=== PATIENT | male | born 1965 | race Caucasian/White ===

== ENCOUNTER → 2017-02-20 | Outpatient (CLI) | payer OTHER ==
[2016-08-19 14:33] VITALS: BP 158/90
[~2017-02-20] MED LIST: DIAZ5TAB PO; HYDR-971 PO; METF1000 PO; NAPR500T PO; PIOG30TA20 PO
== END | disposition home or self-care (01) ==
LOC: LAB 13:32
PROVIDERS: ATTEND Psychiatry & Neurology Neurology
DX: G72.9 Myopathy, unspecified (principal)
CPT/HCPCS: 36415; 82550; 85651

== ENCOUNTER → 2018-06-11 | Outpatient (CLI) | payer OTHER | END | disposition home or self-care (01) | LOC: KCIC MRI 09:00 | DX: M47.896 Other spondylosis, lumbar region (principal); M47.892 Other spondylosis, cervical region; M48.061 Spinal stenosis, lumbar region without neurogenic claudication; M12.88 Other specific arthropathies, not elsewhere classified, other specified site; M51.26 Other intervertebral disc displacement, lumbar region; M51.16 Intervertebral disc disorders with radiculopathy, lumbar region; M25.78 Osteophyte, vertebrae; I10 Essential (primary) hypertension; E11.628 Type 2 diabetes mellitus with other skin complications; K21.9 Gastro-esophageal reflux disease without esophagitis; G43.909 Migraine, unspecified, not intractable, without status migrainosus; J44.9 Chronic obstructive pulmonary disease, unspecified; Z90.49 Acquired absence of other specified parts of digestive tract; Z90.89 Acquired absence of other organs; Z80.3 Family history of malignant neoplasm of breast; Z83.3 Family history of diabetes mellitus; Z68.37 Body mass index [BMI] 37.0-37.9, adult; Z80.1 Family history of malignant neoplasm of trachea, bronchus and lung | CPT/HCPCS: 72141; 72148 ==

== ENCOUNTER → 2018-09-13 | Outpatient (CLI) | payer OTHER ==
[2017-07-01 10:50] VITALS: BP 139/77
[~2018-09-13] MED LIST changes: +AMOX1TAB61 PO; +ASPI-630 PO; +ATORVASTATIN CA80 MG PO; +BUPR150T15 PO; +CARV6.252 PO; +CLOP75TA57 PO; +CYCL10TA2 PO; +DOCU-109 PO; +DOXY100T PO; +FURO-69 PO; +GABA-586 PO; +GLYB5TAB3 PO; +HYDR-3164 PO; -HYDR-971 PO; +LEVO500T59 PO; +LINA5TAB4 PO; +METR500T PO; +NAPR-683 PO; -NAPR500T PO; +NITR0.4T22 SL; +PANT20TA2 PO; -PIOG30TA20 PO; +PIOG30TA41 PO; +PIOG45TA40 PO; +VARE1TAB21 PO; +ZOLP5TAB PO
[2018-09-13 11:28] LABS: BASO # 0.1 x10^3/uL (0.0-0.2); BASO % 1 % (0-3); EOS # 0.3 x10^3/uL (0.0-0.7); EOS % 3 % (0-3); HEMATOCRIT 37.2 % (39.0-53.0); HEMOGLOBIN 12.8 g/dL (13.0-17.5); LYMPH # 1.8 x10^3/uL (1.0-4.8); LYMPH % 20 % (24-48); MEAN CORPUSCULAR HEMOGLOBIN 30 pg (25-35); MEAN CORPUSCULAR HGB CONC 34 g/dL (31-37); MEAN CORPUSCULAR VOLUME 89 fL (79-100); MONO # 0.8 x10^3/uL (0.0-1.1); MONO % 9 % (0-9); NEUT # 5.9 x10^3uL (1.8-7.7); NEUT % 67 % (31-73); PLATELET COUNT 250 x10^3/uL (140-400); RED CELL DISTRIBUTION WIDTH 13.3 % (11.5-14.5); WHITE BLOOD COUNT 8.8 x10^3/uL (4.0-11.0)
[2018-09-13 11:39] LABS: ALBUMIN 3.6 g/dL (3.4-5.0); CALCIUM 8.8 mg/dL (8.5-10.1); GFR 77.9; POTASSIUM 4.5 mmol/L (3.5-5.1); TOTAL BILIRUBIN 0.3 mg/dL (0.2-1.0)
== END | disposition home or self-care (01) ==
LOC: SURGPAT 10:01
PROVIDERS: ATTEND Surgery
DX: Z01.818 Encounter for other preprocedural examination (principal)
CPT/HCPCS: 36415; 80048; 82040; 82247; 85025

== ENCOUNTER → 2018-12-24 | Day surgery (SDC) | payer OTHER ==
[~2018-12-24] MED LIST changes: +CARV6.2511 PO; -CARV6.252 PO; -GABA-586 PO; +GABA300C18 PO; +HYDROmorphone 2 MG/ML VIAL IV PRN; +IV RINGERS,LACTATED 1000ML 1,000 ML IV SCH; +LIDOCAINE 1% PF 2 ML VIAL. ID PRN; +LINA5TAB PO; -LINA5TAB4 PO; +LISI2.5T PO; +MORPHINE SULFATE 4 MG/ML VIAL. IV PRN; +ONDANSETRON PF 4 MG/2 ML VIAL. IV PRN; +PROCHLORPERAZINE 10 MG/2 ML VIAL. IV PRN; +PROPOFOL 20 ML IV ONE; +PROPOFOL 40 ML IV ONE; +fentaNYL PF VIAL 100 MCG/2 ML VIAL IV PRN
[2018-12-24 11:03] VITALS: BP 113/65
--- NOTE | 2018-12-27 17:07 | PATHOLOGY ---
[facility] Accession Number: [id number] . 01 Material submitted: . DESCENDING COLON POLYPS . 01 Clinical history: . Bloating, changing bowel habits . 02 Diagnosis: Colon biopsies, descending colon polyps: - Tubular adenomas. (JPM:yeni; 12/27/2018) QMS/12/27/2018 . 02 Comment: There is no high-grade dysplasia or evidence of malignancy. . 02 Electronically signed: . Chris Matamoros MD, Pathologist NPI- [id number] . 01 Gross description: . The specimen is received in formalin, labeled "Franklyn Amos, descending colon polyps", are two ritchie, rubbery polyps measuring 0.4 x 0.2 x 0.2 cm (inked black, bisected), 0.3 x 0.2 x 0.1 cm and an irregular fragment of ritchie mucosal tissue measuring 0.3 x 0.1 cm. The specimen is entirely submitted in A1. ([facility]; 12/24/2018) [facility] . 02 Pathologist provided ICD-10: D12.4 . 02 CPT . 982636 Specimen Comment: A courtesy copy of this report has been sent to Specimen Comment: [phone], . Specimen Comment: Report sent to / DR NOLAN Specimen Comment: A duplicate report has been generated due to demographic updates. Performed at: 01 [facility] [address] [facility] [address], [place] [id number] MD Nav Adkins MD Phone: [phone] Performed at: 02 [facility] [address] [place], [place] [id number] MD Chris Matamoros MD Phone: [phone]
== END | disposition home or self-care (01) ==
LOC: ENDOS 08:03
PROVIDERS: ATTEND Internal Medicine Gastroenterology
DX: D12.4 Benign neoplasm of descending colon (principal); K64.0 First degree hemorrhoids; K29.50 Unspecified chronic gastritis without bleeding; Z91.010 Allergy to peanuts; F41.9 Anxiety disorder, unspecified; M19.90 Unspecified osteoarthritis, unspecified site; J45.909 Unspecified asthma, uncomplicated; E11.9 Type 2 diabetes mellitus without complications; K21.9 Gastro-esophageal reflux disease without esophagitis; I25.2 Old myocardial infarction; Z95.5 Presence of coronary angioplasty implant and graft; I11.0 Hypertensive heart disease with heart failure; I50.9 Heart failure, unspecified; Z80.3 Family history of malignant neoplasm of breast; Z83.3 Family history of diabetes mellitus; Z82.49 Family history of ischemic heart disease and other diseases of the circulatory system; Z79.82 Long term (current) use of aspirin; Z79.899 Other long term (current) drug therapy; Z79.84 Long term (current) use of oral hypoglycemic drugs; Z90.49 Acquired absence of other specified parts of digestive tract; Z98.890 Other specified postprocedural states
CPT/HCPCS: 43235; 45385; 82962; 88305; J2704; 45380